=== PATIENT | female | born 1985 | race Hispanic/Latino ===

== ENCOUNTER 2018-05-21 01:52 | Observation (INO) | payer MEDICAID ==
[~2018-05-21] VITALS: Ht 162.6 cm; Wt 120.7 kg
[~2018-05-21 01:52] MED LIST: PREN1TAB89 PO
[2018-05-21] MEDS ORDERED: LACTATED RINGERS 1000ML 1,000 ML IV SCH ×3 (02:15→03:45)
[2018-05-21 02:31] LABS: APPEARANCE,URINE Cloudy (CLEAR); BILIRUBIN,URINE Negative (NEGATIVE); COLOR,URINE Yellow (YELLOW); GLUCOSE, URINE (UA) Negative (NEGATIVE); KETONES,URINE Trace mg/dL (NEGATIVE); LEUKOCYTE ESTERASE ,URINE Small (NEGATIVE); NITRATE,URINE Negative (NEGATIVE); OCCULT BLOOD,URINE Large (NEGATIVE); PH,URINE 6.5 (5.0-8.0); PROTEIN,URINE POS 2+ (NEGATIVE)
[2018-05-21 02:38] LABS: AMPHET/METH SCREEN,URINE NEGATIVE (NEGATIVE); BARBITURATE SCREEN, URINE NEGATIVE (NEGATIVE); BENZODIAZEPINES SCREEN,URINE NEGATIVE (NEGATIVE); CANNABINOID SCREEN,URINE NEGATIVE (NEGATIVE); COCAINE SCREEN,URINE NEGATIVE (NEGATIVE); OPIATE SCREEN,URINE NEGATIVE (NEGATIVE); PHENCYCLIDINE SCREEN,URINE NEGATIVE (NEGATIVE)
[2018-05-21 03:16] LABS: AMORPHOUS SEDIMENT,UR Moderate /LPF (None Seen); BACTERIA,URINE Moderate /HPF (None Seen); MUCUS,URINE Many LPF (None Seen); SQUAMOUS EPITHELIAL CELL,UR Moderate /HPF (0-2)
[2018-05-21] MEDS ORDERED: CEFTRIAXONE SODIUM 1 GM IVP PRN (03:30)
[2018-05-21] MEDS ORDERED: LACTATED RINGERS 1000ML IV SCH (03:30)
[2018-05-21 05:44] LABS: APPEARANCE,URINE Clear (CLEAR); BILIRUBIN,URINE Negative (NEGATIVE); COLOR,URINE Yellow (YELLOW); GLUCOSE, URINE (UA) Negative (NEGATIVE); KETONES,URINE Trace mg/dL (NEGATIVE); LEUKOCYTE ESTERASE ,URINE Small (NEGATIVE); NITRATE,URINE Negative (NEGATIVE); OCCULT BLOOD,URINE Moderate (NEGATIVE); PH,URINE 6.5 (5.0-8.0); PROTEIN,URINE POS 1+ (NEGATIVE)
[2018-05-21 05:51] LABS: BACTERIA,URINE Few /HPF (None Seen); MUCUS,URINE Moderate LPF (None Seen); SQUAMOUS EPITHELIAL CELL,UR Few /HPF (0-2)
[2018-05-21] MEDS ORDERED: LIDOCAINE HCL-MPF 1% 2ML VIAL ONE (06:06)
== END 2018-05-21 06:17 | disposition home or self-care (01) ==
LOC: EDH 01:52 → LDH 01:53
PROVIDERS: ADMIT Obstetrics & Gynecology; ATTEND Obstetrics & Gynecology
DX: O26.893 Other specified pregnancy related conditions, third trimester (principal); R30.0 Dysuria; O26.853 Spotting complicating pregnancy, third trimester; Z3A.31 31 weeks gestation of pregnancy
CPT/HCPCS: 80305; 81001; 96374; 99285; G0378 ×4; J0696; J3490; J7120; 96360

== ENCOUNTER 2018-06-09 04:20 | Observation (INO) | payer MEDICAID ==
[~2018-06-09] VITALS: Ht 162.6 cm; Wt 124.7 kg
[2018-06-09] MEDS ORDERED: LACTATED RINGERS 1000ML 1,000 ML IV SCH ×2 (04:30→06:30)
[2018-06-09] MEDS ORDERED: PREN-196 PO (04:36)
[2018-06-09 04:51] LABS: APPEARANCE,URINE CLEAR (CLEAR); BILIRUBIN,URINE NEGATIVE (NEGATIVE); COLOR,URINE YELLOW (YELLOW); GLUCOSE, URINE (UA) NEGATIVE (NEGATIVE); KETONES,URINE NEGATIVE (NEGATIVE); LEUKOCYTE ESTERASE ,URINE NEGATIVE (NEGATIVE); NITRATE,URINE NEGATIVE (NEGATIVE); OCCULT BLOOD,URINE TRACE-LYSED (NEGATIVE); PROTEIN,URINE NEGATIVE (NEGATIVE); UROBILINOGEN,URINE 0.2 mg/dL (0.2-1.0)
[2018-06-09 04:58] LABS: BACTERIA,URINE Few /HPF (None Seen); YEAST,URINE BUDDING Few /HPF (None Seen)
[2018-06-09 05:37] VITALS: BP 124/78
[2018-06-09] MEDS ORDERED: TERBUTALINE SULFATE VIAL 1MG/ML SQ PRN (05:45)
[2018-06-09] MEDS ORDERED: LACTATED RINGERS 1000ML IV PRN (05:45)
[2018-06-09] MEDS ORDERED: TERBUTALINE SULFATE VIAL 1MG/ML SQ ONE (05:55)
== END 2018-06-09 07:40 | disposition home or self-care (01) ==
LOC: EDH 04:20 → LDH 04:21
PROVIDERS: ADMIT Obstetrics & Gynecology; ATTEND Obstetrics & Gynecology
DX: O26.893 Other specified pregnancy related conditions, third trimester (principal); R10.9 Unspecified abdominal pain; Z79.899 Other long term (current) drug therapy; Z87.891 Personal history of nicotine dependence; Z98.51 Tubal ligation status; Z3A.35 35 weeks gestation of pregnancy
CPT/HCPCS: 81001; 96372; 99285; G0378 ×3; J3105; J7120; 96360; 96361